=== PATIENT | male | born 1960 | race Hispanic/Latino ===

== ENCOUNTER → 2018-08-13 | Day surgery (SDC) | payer OTHER ==
[~2018-08-13] MED LIST: FENTANYL CITRATE/PF 100MCG/2 ML INJ ONE; GLUCAGON FOR INJ 1 MG VIAL ONE; MIDAZOLAM HCL 2 MG/2 ML VIAL ONE; OTEZLA PO; PROPOFOL IV EMULSION 10 MG/ML 50 ML VIAL ONE
--- OUTSIDE RECORDS SUMMARY | 2018-08-13 09:56 | XMS REPORT ---
Author Author Admin, [place] Organization [facility] Address [address] [address] Phone Allergies, Adverse Reactions, Alerts Allergy Name Reaction Description Start Date Severity Status Provider No Known Allergies Toño Rivera [employer] Conditions or Problems Problem Name Problem Code Onset Date Status Entry Date Provider Comment Standard Description Annotate Nephrolithiasis 592.0 Active Patricia C Salcedo [facility] Calculus of kidney Renal cyst, left 593.2 Active Patricia C Salcedo [facility] Cyst of kidney, acquired 1.0 cm Abdominal pain 789.00 Active Patricia C Salcedo [facility] Abdominal pain, unspecified site Psoriasis 696.1 Active Patricia C Salcedo [facility] Other psoriasis Rectal bleeding 569.3 Active Patricia C Salcedo [facility] Hemorrhage of rectum and anus Medication List Medication Instructions Start Date Stop Date Generic Name NDC Status Provider Patient Instruction CIPRO 500 MG ORAL TABLET 1 by mouth By Mouth Q12 CIPROFLOXACIN HCL 11504361708 Active Patricia C Salcedo [facility] Active FLAGYL 500 MG ORAL TABLET 1 tab by mouth Q6 hrs for 10 days METRONIDAZOLE 11824252148 Active Patricia C Salcedo [facility] Active OMEPRAZOLE 20 MG ORAL CAPSULE DELAYED RELEASE 1 by mouth every day OMEPRAZOLE 08576116851 Active Patricia C Salcedo [facility] Active CARAFATE 1 GM ORAL TABLET 1 by mouth 3 times a day 30 minutes before meals CARAFATE 1 GM ORAL TABLET 520571 SUCRALFATE Inactive CARAFATE 1 GM ORAL TABLET 1 by mouth 3 times a day 30 minutes before meals SUCRALFATE 38611992170 No Longer Active Patricia C Salcedo [facility] Active Vital Signs Date Name Value Unit Range Description blood pressure, diastolic 84 mm[Hg] BP villalta blood pressure, systolic 132 mm[Hg] BP sys height E&M 64 [in_us] Bdy height pulse rate E&M 71 /min Heart rate respiratory rate E&M 18 /min Resp rate temperature E&M 97.9 [degF] Body temperature weight E&M 166.13 [lb_av] Weight Measured blood pressure, diastolic 72 mm[Hg] BP villalta blood pressure, systolic 128 mm[Hg] BP sys height E&M 64 [in_us] Bdy height pulse rate E&M 67 /min Heart rate temperature E&M 98.4 [degF] Body temperature weight E&M 153.13 [lb_av] Weight Measured Diagnostic Results Date Name Value Unit Range Description Lab Report: CBC With Differential/Platelet, Comp. Metabolic Panel (14), ... - Urinalysis mucus on urinalysis Present Not Estab. WBC urine on microscopy 0-5 /hpf {Cells}/[HPF] 0 - 5 epithelial cells, urine None seen /[LPF] 0 - 10 Lab Report: CBC With Differential/Platelet, Comp. Metabolic Panel (14), ... - Chemistry chloride, serum 99 mmol/L 96-106 urea nitrogen, blood 18 mg/dL 6-24 Lab Report: CBC With Differential/Platelet, Comp. Metabolic Panel (14), ... - Urinalysis leukocyte esterase, urine, by dipstick Negative Negative Lab Report: CBC With Differential/Platelet, Comp. Metabolic Panel (14), ... - Hematology mean corpuscular hemoglobin concentration, RBC 32.7 G/DL % 31.5-35.7 erythrocyte (RBC) count 4.97 X10E6/UL 10*6/mm3 4.14-5.80 Lab Report: CBC With Differential/Platelet, Comp. Metabolic Panel (14), ... - Urinalysis urine color Yellow Yellow Lab Report: CBC With Differential/Platelet, Comp. Metabolic Panel (14), ... - Chemistry Absolute Neutrophils 4.9 X10E3/UL 10*3/uL 1.4-7.0 Lab Report: CBC With Differential/Platelet, Comp. Metabolic Panel (14), ... - Urinalysis bilirubin, urine Negative Negative Lab Report: CBC With Differential/Platelet, Comp. Metabolic Panel (14), ... - Chemistry urea nitrogen/creatinine ratio, serum 20 9-20 Lab Report: CBC With Differential/Platelet, Comp. Metabolic Panel (14), ... - Hematology mean corpuscular volume, RBC 90 fL 79-97 monocytes as percent of blood leukocytes 6 % Not Estab. Lab Report: CBC With Differential/Platelet, Comp. Metabolic Panel (14), ... - Chemistry creatinine, serum 0.91 mg/dL 0.76-1.27 albumin/globulin ratio, serum 1.3 1.2-2.2 bilirubin, serum, total 0.3 mg/dL 0.0-1.2 Lab Report: CBC With Differential/Platelet, Comp. Metabolic Panel (14), ... - Hematology Eosinophil Absolute Count 0.4 X10E3/UL 10*3/uL 0.0-0.4 Lab Report: CBC With Differential/Platelet, Comp. Metabolic Panel (14), ... - Urinalysis appearance, urine Clear Clear Lab Report: CBC With Differential/Platelet, Comp. Metabolic Panel (14), ... - Chemistry aspartate aminotransferase (SGOT), serum 19 U/L 0-40 Lab Report: CBC With Differential/Platelet, Comp. Metabolic Panel (14), ... - Hematology red blood cell distribution width 13.4 % 12.3-15.4 Lab Report: CBC With Differential/Platelet, Comp. Metabolic Panel (14), ... - Urinalysis urinalysis, microscopic examination MICRON Lab Report: CBC With Differential/Platelet, Comp. Metabolic Panel (14), ... - Hematology leukocyte count, blood 9.2 X10E3/UL 10*3/mm3 3.4-10.8 Lab Report: CBC With Differential/Platelet, Comp. Metabolic Panel (14), ... - Urinalysis pH, urine, semiquantitative 5.0 5.0-7.5 Lab Report: CBC With Differential/Platelet, Comp. Metabolic Panel (14), ... - Chemistry potassium, serum 4.7 mmol/L 3.5-5.2 immature granulocytes, percentage of total cells, blood 0 % Not Estab. albumin, serum 4.5 g/dL 3.5-5.5 Lab Report: CBC With Differential/Platelet, Comp. Metabolic Panel (14), ... - Hematology lymphocyte count, blood, automated 3.2 X10E3/UL 10*3/mm3 0.7-3.1 hematocrit, blood 44.9 % 37.5-51.0 Lab Report: CBC With Differential/Platelet, Comp. Metabolic Panel (14), ... - Chemistry sodium, serum 139 mmol/L 134-144 Lab Report: CBC With Differential/Platelet, Comp. Metabolic Panel (14), ... - Urinalysis urine culture No growth Lab Report: CBC With Differential/Platelet, Comp. Metabolic Panel (14), ... - Hematology neutrophils as percent of blood leukocytes 53 % Not Estab. basophils as percent of blood leukocytes 1 % Not Estab. Lab Report: CBC With Differential/Platelet, Comp. Metabolic Panel (14), ... - Chemistry specific gravity, body fluid 1.021 1.005-1.030 RBC, Urine 0-2 /hpf /[HPF] 0 - 2 Lab Report: CBC With Differential/Platelet, Comp. Metabolic Panel (14), ... - Urinalysis protein, urine, semiquantitative (dipstick) Negative Negative/Trace Lab Report: CBC With Differential/Platelet, Comp. Metabolic Panel (14), ... - Microbiology microscopic exam See below: Lab Report: CBC With Differential/Platelet, Comp. Metabolic Panel (14), ... - Chemistry carbon dioxide, venous blood 25 mmol/L 20-29 nitrate, urine Negative Negative calcium, serum 9.7 mg/dL 8.7-10.2 alanine aminotransferase (SGPT), serum 17 U/L 0-44 Lab Report: CBC With Differential/Platelet, Comp. Metabolic Panel (14), ... - Hematology mean corpuscular hemoglobin, RBC 29.6 pg 26.6-33.0 Lab Report: CBC With Differential/Platelet, Comp. Metabolic Panel (14), ... - Urinalysis bacteria, urine microscopy None seen None seen/Few Lab Report: CBC With Differential/Platelet, Comp. Metabolic Panel (14), ... - Chemistry protein, total, serum 8.1 g/dL 6.0-8.5 alkaline phosphatase, serum 66 U/L 39-117 Lab Report: CBC With Differential/Platelet, Comp. Metabolic Panel (14), ... - Hematology hemoglobin, blood 14.7 g/dL 13.0-17.7 lymphocytes as percent of blood leukocytes 35 % Not Estab. Lab Report: CBC With Differential/Platelet, Comp. Metabolic Panel (14), ... - Urinalysis glucose, urine, semiquantitative Negative Negative Lab Report: CBC With Differential/Platelet, Comp. Metabolic Panel (14), ... - Genetics/fertility eGFR if 109 mL/min/1.73m2 >59 Lab Report: CBC With Differential/Platelet, Comp. Metabolic Panel (14), ... - Hematology basophil count, absolute 0.1 x10E3/uL 0.0-0.2 Lab Report: CBC With Differential/Platelet, Comp. Metabolic Panel (14), ... - Chemistry globulin, serum 3.6 1.5-4.5 Estimated Glomerular Filtration Rate (calc) 94 mL/min/1.73m2 >59 Lab Report: CBC With Differential/Platelet, Comp. Metabolic Panel (14), ... - Basic Occult Blood, urine Negative Negative Lab Report: CBC With Differential/Platelet, Comp. Metabolic Panel (14), ... - Hematology eosinophils as percent of blood leukocytes 5 % Not Estab. Lab Report: CBC With Differential/Platelet, Comp. Metabolic Panel (14), ... - Chemistry blood glucose, random 105 mg/dL 65-99 Lab Report: CBC With Differential/Platelet, Comp. Metabolic Panel (14), ... - Urinalysis urobilinogen, urine, semiquantitative (dipstick) 0.2 0.2-1.0 Lab Report: CBC With Differential/Platelet, Comp. Metabolic Panel (14), ... - Hematology monocyte count, blood, automated 0.5 X10E3/UL 10*3/uL 0.1-0.9 platelet count 349 X10E3/UL 10*3/mm3 150-379 Lab Report: CBC With Differential/Platelet, Comp. Metabolic Panel (14), ... - Urinalysis ketones, urine, by test strip Negative Negative Encounters Date Encounter Provider Code Facility 12:08:11 HEEL SLICKER Est Patient Detailed - [id number] CPT-46389 [facility] 10:35:17 CDT New Patient Detailed - [id number] [facility] CPT-10310 [facility]
[2018-08-13 14:40] VITALS: BP 124/82
== END | disposition home or self-care (01) ==
LOC: OR 09:53
PROVIDERS: ATTEND Internal Medicine Gastroenterology
DX: Z12.11 Encounter for screening for malignant neoplasm of colon (principal); K57.30 Diverticulosis of large intestine without perforation or abscess without bleeding; K59.00 Constipation, unspecified; K64.8 Other hemorrhoids; L40.9 Psoriasis, unspecified; N20.0 Calculus of kidney
CPT/HCPCS: 45378; 93005; J1610; J2250; J2704